=== PATIENT | male | born 1940 | race Caucasian/White ===

== ENCOUNTER 2018-08-11 17:04 | Inpatient (IN) | payer MEDICARE ==
[~2018-08-11] VITALS: Ht 182.9 cm; Wt 113.6 kg
[2018-08-11] MEDS ORDERED: COREG6.25 MG PO (17:18)
[2018-08-11] MEDS ORDERED: FLOMAX0.4 MG PO (17:18)
[2018-08-11] MEDS ORDERED: CARDIZEM CD240 MG PO (17:18)
[2018-08-11] MEDS ORDERED: OMEPRAZOLE20 M1 PO (17:19)
[2018-08-11] MEDS ORDERED: ZOLOFT50 MG PO (17:19)
[2018-08-11] MEDS ORDERED: XANAX0.5 MG PO (17:20)
[2018-08-11] MEDS ORDERED: SYNTHROID100 MCG PO (17:20)
[2018-08-11 18:02] LABS: INR 1.13 (0.85-1.17)
[2018-08-11 18:03] LABS: APTT 32.3 SECONDS (22.8-39.4)
[2018-08-11 18:08] LABS: BASOPHILS 0 % (0-2); EOSINOPHILS 0 % (0-7); HEMATOCRIT 40.1 % (42.0-54.0); HEMOGLOBIN 13.9 g/dL (13.5-17.5); IMMATURE GRANULOCYTES 0.6 % (0-5); LYMPHOCYTES 6.1 % (15-50); MCH 30.4 pg (26.0-34.0); MCHC 34.7 g/dL (31.0-37.0); MCV 87.7 fL (80.0-100.0); MEAN PLATELET VOLUME 9.8 fL (7.4-10.4); MONOCYTES 7.6 % (2-11); NEUTROPHILS 85.7 % (40-80); PLATELET COUNT 268 10x3/uL (130-400); RBC 4.57 10x6/uL (4.20-6.10); RDW 14.4 % (11.5-14.5); WBC 20.7 10x3/uL (4.8-10.8)
[2018-08-11 18:16] LABS: ALKALINE PHOSPHATASE 85 U/L (46-116); ALT (SGPT) 23 U/L (10-68); BILIRUBIN - TOTAL 0.39 mg/dL (0.2-1.3); CALC OSMOLALITY 273 mosm/kg (275-300); CALCIUM 9.2 mg/dL (8.5-10.1); CARBON DIOXIDE 26.8 mmol/L (21.0-32.0); CHLORIDE - SERUM 96 mmol/L (98-107); GLUCOSE 113 mg/dL (74-106); POTASSIUM - SERUM 3.5 mmol/L (3.5-5.1); PROTEIN - SERUM 7.1 g/dL (6.4-8.2); SODIUM 135 mmol/L (136-145); UREA NITROGEN 21 mg/dL (7-18); eGFR NON AFRICAN AMERICAN 77 mL/min (90-120)
[2018-08-11 18:33] LABS: CREATINE KINASE 397 UL (21-232); THYROID STIMULATING HORMONE 4.18 uIU/mL (0.36-3.74)
[2018-08-11 18:35] LABS: TROPONIN-I 0.158 ng/mL (0.000-0.060)
[2018-08-11 18:39] LABS: APPEARANCE CLOUDY (CLEAR); COLOR YELLOW (YELLOW); NITRITE POSITIVE (NEGATIVE); PROTEIN 3+ mg/dL (NEGATIVE); SPECIFIC GRAVITY 1.015 (1.005-1.020)
[2018-08-11 18:40] LABS: BACTERIA MANY /hpf (NONE SEEN); BILIRUBIN NEGATIVE (NEGATIVE); EPITHELIAL CELLS 0-5 /hpf (0-5); GLUCOSE NEGATIVE (NEGATIVE); KETONE MODERATE mg/dL (NEGATIVE); RED CELLS - URINE RARE /hpf (0-5); UROBILINOGEN NORMAL (NORMAL); WHITE CELLS - URINE >50 /hpf (0-5)
[2018-08-11 19:00] VITALS: BP 124/74
--- NOTE | 2018-08-11 19:16 | NUR ---
PT PROVIDED URINAL PER REQUEST. PT RESTING ON BED, FAMILY AT BEDSIDE. NO S/S OF ACUTE DISTRESS NOTED.
--- NOTE | 2018-08-11 19:45 | NUR ---
PT AND FAMILY UPDATED ON PLAN OF CARE. PT AND FAMILY DENY FURTHER QUESTIONS.
--- NOTE | 2018-08-11 20:03 | NUR ---
PT LEFT VIA STRETCHER FOR CT, PT WILL BE TAKEN TO INPATIENT ROOM FOLLOWING CT.
--- NOTE | 2018-08-11 20:15 | NUR ---
PT ARRIVED ON UNIT VIA STRETCHER ESCORTED BY ER STAFF AND FAMILY MEMBER. IV IN RIGHT WRIST SALINE LOCKED. TRANSFERRED TO BED AND PT TRYING TO CLIMB OVER RAIL AND URINATING AT THE SAME TIME. PROVIDED URINAL AND PT URINATING 50 ML AND THEN URINATED ON THE FLOOR...CONFUSED AND UNSTEADY ON HIS FEET. GOT BACK IN BED AND PT PULLED OUT IV SCOOTING UP IN BED.
--- NOTE | 2018-08-11 20:25 | NUR ---
PT CONTINUES TO CLIMB OVER SIDE RAIL AND YELLING HE NEEDS TO URINATE EVEN THOUGH HE CAN'T GO WHEN OFFERED A URINAL. CALLED DR LOVE AND NOTIFIED OF PT'S ARRIVAL ON FLOOR AND BEHAVIORS SINCE ARRIVING. RECEIVED ORDER TO GIVE GEODON 5 MG IM Q6 HR PRN AGGITATION. ALSO ORDER RECEIVED TO PLACED GRAHAM CATHETER AND DOCUMENT RETAINED URINE.
--- NOTE | 2018-08-11 21:05 | NUR ---
GAVE GEODON 5 MG IM FOR AGGITATION.
--- NOTE | 2018-08-11 22:20 | NUR ---
PT HAD INCONTINENT URINATION...THEN 18 F GRAHAM CATHETER WAS PLACED WITH RETURN OF 425 ML OF RETAINED URINE. PT LESS AGGITATED AT THIS TIME. BED ALARM IN PLACE.
--- NOTE | 2018-08-11 22:30 | NUR ---
IV RE-SITED TO RIGHT FA BY DANIELLE BOYER LPN AND ANOTHER SITED TO LEFT FA BY DESMOND WATTS LPN. STARTED IV FLUIDS TO RIGHT FA PER ORDER. PT RESTING AT THIS TIME ON RIGHT SIDE WITH EYES CLOSED AND EASY RESPIRATIONS. BED ALARM IN USE.
[2018-08-11 23:21] VITALS: BP 147/71; BMI 34.0
--- NOTE | 2018-08-11 23:56 | NUR ---
ADMISSION ASSESSMENT AND HISTORY COMPLETE.
[2018-08-12 07:01] LABS: BASOPHILS 0.1 % (0-2); EOSINOPHILS 0.1 % (0-7); HEMATOCRIT 38.2 % (42.0-54.0); IMMATURE GRANULOCYTES 0.4 % (0-5); LYMPHOCYTES 11.1 % (15-50); MCH 29.7 pg (26.0-34.0); MCV 87.4 fL (80.0-100.0); MEAN PLATELET VOLUME 9.2 fL (7.4-10.4); MONOCYTES 11.2 % (2-11); NEUTROPHILS 77.1 % (40-80); PLATELET COUNT 251 10x3/uL (130-400); RBC 4.37 10x6/uL (4.20-6.10); RDW 14.5 % (11.5-14.5); WBC 18.5 10x3/uL (4.8-10.8)
[2018-08-12 07:21] LABS: CALC OSMOLALITY 278 mosm/kg (275-300); CALCIUM 8.4 mg/dL (8.5-10.1); CARBON DIOXIDE 24.9 mmol/L (21.0-32.0); CHLORIDE - SERUM 103 mmol/L (98-107); GLUCOSE 92 mg/dL (74-106); POTASSIUM - SERUM 3.2 mmol/L (3.5-5.1); SODIUM 139 mmol/L (136-145); UREA NITROGEN 16 mg/dL (7-18)
[2018-08-12 07:23] LABS: CREATININE - SERUM 0.7 mg/dL (0.6-1.3); eGFR NON AFRICAN AMERICAN > 90 mL/min (90-120)
[2018-08-12 09:26] VITALS: BP 174/89
[2018-08-12 13:27] VITALS: BP 167/79
[2018-08-12 14:56] LABS: CKMB 9.5 U/L (0.0-3.6); THYROID STIMULATING HORMONE 3.13 uIU/mL (0.36-3.74); TROPONIN-I 0.055 ng/mL (0.000-0.060)
[2018-08-12 15:01] LABS: CREATINE KINASE 1280 UL (21-232)
--- NOTE | 2018-08-12 15:28 | MORECARE ---
CASE MANAGEMENT DISCHARGE SUMMARY PATIENT: ROLAN RODRIGUEZ UNIT: [id number] ADM DATE: 08/11/18 AGE: 77 : 39 SEX: M ROOM/BED: D.2202 AUTHOR: THOM SILVA PHYSICIAN: REFERRING PHYSICIAN: TIEN LOVE MD DATE OF SERVICE: 08/12/18 Discharge Plan Patient Name: ROLAN RODRIGUEZ [facility] [facility] 1940 Planned Disposition: Home Anticipated Discharge Date: 08/14/18 Discharge Date: Expected LOS: 3 Initial Reviewer: [email or web address] Initial Review Date: 08/11/2018 Generated: 08/12/18 4:28 pm DCPIA - Discharge Planning Initial Assessment Updated by [email or web address]: Annabelle Celestin on 08/12/18 3:25 pm * Is the patient Alert and Oriented? No * How many steps to enter\exit or inside your home? * PCP [facility]acy [facility] * Preadmission Environment Home Alone * ADLs Independent * Equipment Cane * List name and contact numbers for known caregivers / representatives who currently or will assist patient after discharge: Elise Pacheco - daughter - [phone] Richomnd Rodriguez - son - [phone] * Verbal permission to speak to the caregivers and representatives has been obtained from the patient. Yes * Community resources currently utilized None * Additional services required to return to the preadmission environment? No * Can the patient safely return to the preadmission environment? Yes * Has this patient been hospitalized within the prior 30 days at any hospital? No Patient Name: ROLAN RODRIGUEZ Page 98119 at 1528 All edits/amendments must be made on the electronic document DICTATION DATE: 08/12/18 1528 APPIAN BPM DEVELOPER: ZHOU 08/12/188 RPT#: [id number] DC DATE: STATUS: ADM IN [facility] [address] [place] [address] END OF REPORT
--- NOTE | 2018-08-12 15:37 | MORECARE ---
CASE MANAGEMENT DISCHARGE SUMMARY PATIENT: ROLAN RODRIGUEZ UNIT: [id number] ADM DATE: 08/11/18 AGE: 77 : 39 SEX: M ROOM/BED: D.2202 AUTHOR: THOM SILVA PHYSICIAN: REFERRING PHYSICIAN: TIEN LOVE MD DATE OF SERVICE: 08/12/18 Discharge Plan Patient Name: ROLAN RODRIGUEZ Facility: [facility]:[place] : 1940 Planned Disposition: Home Anticipated Discharge Date: 08/14/18 Discharge Date: Expected LOS: 3 Initial Reviewer: [email or web address] Initial Review Date: 08/11/2018 Generated: 08/12/18 4:36 pm DCP- Discharge Planning Updated by [email or web address]: Annabelle Celestin on 08/12/18 2:[address] Patient Name: ROLAN RODRIGUEZ Admission Status: ER Accout number: [id number] Admission Date: 08-11-2018 : 1940 Admission Diagnosis: Attending: TIEN LOVE Current LOS: 1 Anticipated DC Date: 08-14-2018 Planned Disposition: Home Primary Insurance: MEDICARE A & B Discharge Planning Comments: CM met with patient who was confused and his son, Richmond Rodriguez, to complete initial dc planning assessment. CM educated patient and his son on the CM role and verbal consent given by patient's son to complete assessment. Patient lives at home alone and is usually independent in his care at home. The confusion is new and the patient is normally A&O x3. At discharge patient's son hope he is able to return home alone and he feels this is a safe discharge as long as patient's orientation clears up. CM discussed availability of home health, rehab services, and medical equipment. Patient's son denied known discharge needs at this time and hope he will not need any assistance at dc. CM will continue to follow and will assist as needed with dc plans/needs. Production Grader: Annabelle Celestin RN, [facility] DCPIA - Discharge Planning Initial Assessment Updated by [id number]: Annabelle Celestin on 08/12/18 3:25 pm * Is the patient Alert and Oriented? No * How many steps to enter\exit or inside your home? * PCP [facility] * Pharmacy [facility] * Preadmission Environment Home Alone * ADLs Independent * Equipment Cane * List name and contact numbers for known caregivers / representatives who currently or will assist patient after discharge: Elise Pacheco - daughter - [phone] Richmond Rodriguez - son - [phone] * Verbal permission to speak to the caregivers and representatives has been obtained from the patient. Yes * Community resources currently utilized None * Additional services required to return to the preadmission environment? No * Can the patient safely return to the preadmission environment? Yes * Has this patient been hospitalized within the prior 30 days at any hospital? No Last DP export: 08/12/18 2:28 p Patient Name: ROLAN RODRIGUEZ Page 97705 at 1537 All edits/amendments must be made on the electronic document DICTATION DATE: 08/12/181535 ADMITTING REPRESENTATIVE: ZHOU 08/12/181535 RPT#: [id number] DC DATE: STATUS: ADM IN [facility] [address] [place] [address] END OF REPORT
[2018-08-12 18:09] VITALS: BP 174/88
--- NOTE | 2018-08-12 19:00 | NUR ---
REPORT RECEIVED AND CARE OF PT ASSUMED. PT LYING ON LEFT SIDE WITH EYES CLOSED AND UNLABORED BREATHING. TELEMETRY REPORTS SR AT 90 AT THIS ASSESSMENT. IV PATENT WITH NS INFUSING AT 125 ML / HR. WILL MONITOR FOR NEEDS.
--- NOTE | 2018-08-12 19:50 | NUR ---
I have reviewed this patient and I concur with the Shift Assessment completed by the Licensed Practical Nurse today this shift.
[2018-08-12 21:04] LABS: CKMB 6.7 U/L (0.0-3.6); TROPONIN-I 0.044 ng/mL (0.000-0.060)
[2018-08-12 21:05] VITALS: BP 170/80
[2018-08-12 21:07] LABS: CREATINE KINASE 1104 UL (21-232)
--- NOTE | 2018-08-12 21:19 | NUR ---
HS MEDICATIONS GIVEN TO INCLUDE XANAX 0.5 MG PO PER ORDER. WILL CONTINUE TO MONITOR FOR NEEDS.
[2018-08-13 02:58] LABS: BASOPHILS 0.1 % (0-2); EOSINOPHILS 0.4 % (0-7); HEMATOCRIT 36.3 % (42.0-54.0); HEMOGLOBIN 12.3 g/dL (13.5-17.5); IMMATURE GRANULOCYTES 0.8 % (0-5); LYMPHOCYTES 12.5 % (15-50); MCH 29.6 pg (26.0-34.0); MCHC 33.9 g/dL (31.0-37.0); MCV 87.5 fL (80.0-100.0); MEAN PLATELET VOLUME 9.4 fL (7.4-10.4); MONOCYTES 8.1 % (2-11); NEUTROPHILS 78.1 % (40-80); PLATELET COUNT 257 10x3/uL (130-400); RBC 4.15 10x6/uL (4.20-6.10); RDW 14.4 % (11.5-14.5)
[2018-08-13 03:18] LABS: CALC OSMOLALITY 273 mosm/kg (275-300); CARBON DIOXIDE 25.1 mmol/L (21.0-32.0); CHLORIDE - SERUM 103 mmol/L (98-107); CKMB 3.8 U/L (0.0-3.6); CREATINE KINASE 729 UL (21-232); CREATININE - SERUM 0.6 mg/dL (0.6-1.3); GLUCOSE 85 mg/dL (74-106); POTASSIUM - SERUM 3.2 mmol/L (3.5-5.1); SODIUM 138 mmol/L (136-145); TROPONIN-I 0.038 ng/mL (0.000-0.060); UREA NITROGEN 11 mg/dL (7-18); eGFR NON AFRICAN AMERICAN > 90 mL/min (90-120)
[2018-08-13 05:49] VITALS: BP 122/77
--- NOTE | 2018-08-13 07:35 | NUR ---
PT RESTING QUIETLY IN BED WITH EYES OPEN. NO ACUTE DISTRESS NOTED. PT IS [place]. DENIES PAIN AT THIS TIME. IV TO RIGHT FOREARM WITH NS @ 125 ML/HR INFUSING VIA PUMP. SITE WITHOUT REDNESS OR EDEMA. SALINE LOC TO LEFT FOREARM, SITE WITHOUT REDNESS OR EDEMA. F/C INTACT AND PATENT TO GRAVITY. DENIES FURTHER NEEDS AT THIS TIME. CL WITHIN REACH. ENCOURAGED TO CALL WITH NEEDS. CONTINUE POC
[2018-08-13 08:31] VITALS: BP 133/54
--- NOTE | 2018-08-13 11:43 | NUR ---
Rehab Prescreening Consult recieved and the chart has been reviewed. He has a consult for Dr Thomas that is pending and a PT and OT eval that are pending as well. Rehab will follow and see what his functional and medical needs are. Discussed with the CM Dali Cordero RN. Olivia Casillas RN Clinical Liaison, Rehab
[2018-08-13 13:25] VITALS: BP 123/58
[2018-08-13 17:06] VITALS: BP 111/46
[2018-08-13 20:35] VITALS: BP 120/57
[2018-08-13 23:47] VITALS: BP 140/73
--- NOTE | 2018-08-14 03:02 | NUR ---
1944)rec'd chge. of shift in bed eyes closed resp. deep and even.rhett alarm in place. will continue to monitor for any chges. and follow current plan of care.
[2018-08-14 04:00] VITALS: BP 123/42
[2018-08-14 05:28] LABS: BASOPHILS 0.2 % (0-2); EOSINOPHILS 1.2 % (0-7); HEMATOCRIT 37.2 % (42.0-54.0); HEMOGLOBIN 12.4 g/dL (13.5-17.5); IMMATURE GRANULOCYTES 3.5 % (0-5); LYMPHOCYTES 18.9 % (15-50); MCH 29.1 pg (26.0-34.0); MCHC 33.3 g/dL (31.0-37.0); MCV 87.3 fL (80.0-100.0); MEAN PLATELET VOLUME 9.8 fL (7.4-10.4); MONOCYTES 8.2 % (2-11); RBC 4.26 10x6/uL (4.20-6.10); RDW 14.3 % (11.5-14.5)
[2018-08-14 05:41] LABS: PLATELET COUNT 310 10x3/uL (130-400); WBC 10.8 10x3/uL (4.8-10.8)
[2018-08-14 06:06] LABS: CALC OSMOLALITY 272 mosm/kg (275-300); CALCIUM 8.4 mg/dL (8.5-10.1); CARBON DIOXIDE 25.7 mmol/L (21.0-32.0); CHLORIDE - SERUM 104 mmol/L (98-107); CREATININE - SERUM 0.6 mg/dL (0.6-1.3); GLUCOSE 83 mg/dL (74-106); MAGNESIUM - SERUM 2.1 mg/dL (1.8-2.4); POTASSIUM - SERUM 3.2 mmol/L (3.5-5.1); SODIUM 137 mmol/L (136-145); UREA NITROGEN 12 mg/dL (7-18); eGFR NON AFRICAN AMERICAN > 90 mL/min (90-120)
--- NOTE | 2018-08-14 07:11 | NUR ---
I have reviewed this patient and I concur with the Shift Assessment completed by the Licensed Practical Nurse today this shift.
--- NOTE | 2018-08-14 07:57 | NUR ---
AWAKE AND ALERT. ORIENTED X3. C/O PAIN TO HEAD RIGHT SHOULDER AND HIP LEVEL 6. GIVEN 650 MG TYLENOL PO FOR SAME. WILL MONITOR. LUNGS ARE CLEAR BUT DIMINISHED IN LOWER LOBES, NO COUGH NOTED. SKIN IS INTACT WITHOUT REDNESS. IV TO LEFT FOREARM IS PATENT WITHOUT REDNESS AT INSERTION SITE. NO FURTHER NEEDS NOTED.
[2018-08-14 09:14] VITALS: BP 138/55
--- NOTE | 2018-08-14 10:30 | NUR ---
UP TO SHOWER WITH SET UP ASSISTANCE. LINENS CHANGED.
--- NOTE | 2018-08-14 12:30 | NUR ---
REMAINS UP IN CHAIR AT BEDSIDE EATING LUNCH. DENIES NEEDS.
[2018-08-14 13:45] VITALS: BP 130/62
--- NOTE | 2018-08-14 14:15 | NUR ---
ASSISTED BACK TO BED WITH ONE PERSON MIN ASSIST. PEYTON MAT IN PLACE. DENIES NEEDS.
--- NOTE | 2018-08-14 14:59 | NUR ---
REQUESTED AND GIVEN 650 MG TYLENOL PO FOR C/O KIDNEY PAIN LEVEL 3. WILL MONITOR.
[2018-08-14 15:18] VITALS: Ht 182.9 cm; Wt 113.6 kg
[2018-08-14 16:55] VITALS: BP 130/68
--- NOTE | 2018-08-14 18:51 | NUR ---
SITTING UP IN CHAIR AT BEDSIDE. FAMILY WAS HERE EARLIER. DENIES NEEDS. NO CHANGES NOTED.
--- NOTE | 2018-08-14 19:56 | NUR ---
OT NOTE: PT COMPLETED SITTINB BALANCE WITH SBA/CGA. PT COMPLETED SIT TO STAND WITH MIN A/CGA. THANK YOU, EDITA GABRIEL
[2018-08-14 20:00] VITALS: BP 138/74
[2018-08-15] VITALS (7 sets, daily range): BP systolic 135–170; BP diastolic 60–110
--- NOTE | 2018-08-15 00:02 | NUR ---
REC'D. SITTING IN BEDSIDE CHAIR WITH PEYTON MAT ON DENIES ANY DISCOMFORTS STATES READY TO GO HOME. WILL CONTINUE TO MONITOR FOR ANY CHGES AND CONTINUE TO FOLLOW CURRENT PLAN OF CARE
[2018-08-15 06:03] LABS: CALC OSMOLALITY 276 mosm/kg (275-300); CALCIUM 8.6 mg/dL (8.5-10.1); CARBON DIOXIDE 26.4 mmol/L (21.0-32.0); CHLORIDE - SERUM 102 mmol/L (98-107); CREATININE - SERUM 0.7 mg/dL (0.6-1.3); GLUCOSE 93 mg/dL (74-106); MAGNESIUM - SERUM 2.1 mg/dL (1.8-2.4); POTASSIUM - SERUM 3.1 mmol/L (3.5-5.1); SODIUM 139 mmol/L (136-145); UREA NITROGEN 11 mg/dL (7-18); eGFR NON AFRICAN AMERICAN > 90 mL/min (90-120)
[2018-08-15 06:06] LABS: BASOPHILS 0.5 % (0-2); EOSINOPHILS 2.6 % (0-7); HEMATOCRIT 40.8 % (42.0-54.0); HEMOGLOBIN 13.6 g/dL (13.5-17.5); IMMATURE GRANULOCYTES 7.3 % (0-5); LYMPHOCYTES 23.5 % (15-50); MCH 29.2 pg (26.0-34.0); MCHC 33.3 g/dL (31.0-37.0); MCV 87.6 fL (80.0-100.0); MEAN PLATELET VOLUME 10.1 fL (7.4-10.4); MONOCYTES 11.2 % (2-11); NEUTROPHILS 54.9 % (40-80); RBC 4.66 10x6/uL (4.20-6.10); RDW 14.3 % (11.5-14.5); WBC 9.5 10x3/uL (4.8-10.8)
[2018-08-15 06:26] LABS: PLATELET COUNT 392 10x3/uL (130-400)
--- NOTE | 2018-08-15 06:44 | NUR ---
I have reviewed this patient and I concur with the Shift Assessment completed by the Licensed Practical Nurse today this shift.
--- NOTE | 2018-08-15 07:34 | NUR ---
IV SITED TO LEFT UPPER ARM AFTER 3 ATTEMPTS WITH 20 G. OFF UNIT VIA BED FOR SURGERY
--- NOTE | 2018-08-15 09:20 | NUR ---
RETURNED FROM SURGERY. A/O X3. NO C/O PAIN. DENIES NEEDS. SON AT BEDSIDE.
--- NOTE | 2018-08-15 10:00 | NUR ---
SON IN ROOM AT THIS TIME. VSS. ASSISTED UP TO CHAIR AT BEDSDIE PER STAFF. PULLED IV OUT AT THIS TIME. WILL MONITOR.
--- NOTE | 2018-08-15 10:18 | OP ---
PATIENT NAME: ROLAN DAIGLE MEDICAL RECORD: [id number] :38 LOCATION:D.MS Ann2 ADMISSION DATE:08/11/18 SURGEON: JOSH TREVINO MD DATE OF OPERATION: 08/15/2018 SURGEON: Josh Trevino MD ANESTHESIA: General anesthesia by Hemanth Gil MD. DIAGNOSES: A 6-mm left distal ureteral stone with hydronephrosis proximally, and left pyelonephritis. Obstructive BPH with incomplete bladder emptying. PROCEDURES: Cystoscopy, left retrograde pyelogram, left ureteroscopy and stone extraction, left ureteral stent insertion with string attached. 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 Trabeculated bladder with cellules. Single ureteral orifices bilaterally. SPECIMENS: Left ureteral stone. BLOOD LOSS: None. CLINICAL HISTORY: This is a 77-year-old male, who comes from a senior living. He is very hard of hearing and he did not bring his hearing aids, so the history was very difficult to obtain. He was sent with apparent pyelonephritis with elevated white blood cell count, rigors and chills. Urine culture grew Enterobacter cloacae. Blood cultures have been negative. He was placed on IV antibiotics and his white count has come down and he has been afebrile. A CT scan shows a 6-mm stone in the left distal ureter causing proximal hydroureteronephrosis. There is also an enlarged prostate seen on the CT scan. The BPH is the most likely cause of his pyelonephritis as men do not get urinary tract infections unless they have bladder outlet obstruction. He comes today to have the stone removed by left ureteroscopy. At a later date when his infection is fully cleared, we will treat his BPH with the UroLift procedure. Since he is already on IV antibiotics on the floor, we did not give him any further IV antibiotics in the OR. DESCRIPTION OF PROCEDURE: The patient was given induction of general anesthesia. He was placed into dorsal lithotomy position and prepped and draped. Fluoroscopy revealed 2 radiodensities in the left hemipelvis. In order to determine which one of these was the stone, we performed a left retrograde pyelogram. Cystoscopy was performed using a 21-Congolese cystoscope. There was no urethral stricture. The prostate was obstructive with bilateral lateral lobe hyperplasia. There is no median lobe to speak of. We then introduced a 5-Congolese open-ended ureteral catheter into the left ureteral orifice. Diluted contrast was injected and we found the correct stone in the distal ureter. A Sensor wire was placed up to the renal pelvis through the lumen of the ureteral catheter. The ureteral catheter was then removed entirely. The left ureteral orifice was dilated to 21-Congolese using 14 atmospheres of pressure with the balloon tip just at the level of the stone on fluoroscopy. The pressure was maintained for only a few seconds and then the balloon was deflated. We then switched to the rigid ureteroscope. The stone was identified in the ureter. A 0-tip 4-wire basket was used to completely remove the stone. There were actually 2 stone fragments, much larger and a very tiny 1 mm stone. We went OPERATIVE REPORT [id number] ROLAN DAIGLE back and got the 1-mm stone fragment also. No other stones were seen. We then switched back to the cystoscope. The guidewire was backloaded on to the cystoscope. Over the wire, we inserted a 6-Congolese x 24-cm ureteral stent. Once the stent was in correct position, we drained the bladder and pushed the distal end of the stent all the way into the bladder. The string on the distal end of the stent was maintained. It hangs out of the urethra. His indwelling catheter was placed back in. A new 16-Congolese was inserted for this. The patient was awakened and brought back to the recovery room. He will go back to his room soon. TRANSINT:[id number] Voice Confirmation ID: [id number] DOCUMENT ID: [id number] JOSH TREVINO MD at 1018 CC: [id number] DICTATION DATE: 08/15/18 0843 ENGINEERING LIBRARIAN: 08/15/[address] [facility] [address] [place] [address]
[2018-08-15] MEDS ORDERED: ACETAMINOPHEN325 MG PO (11:53)
[2018-08-15] MEDS ORDERED: LOVENOX40 MG/0.4 SC (11:53)
[2018-08-15] MEDS ORDERED: XANAX0.25 MG PO (11:53)
[2018-08-15] MEDS ORDERED: FLORAJEN3 CAPS460 MG PO (11:54)
[2018-08-15] MEDS ORDERED: HYDROCODON-ACE1 EAC7 PO (11:55)
[2018-08-15] MEDS ORDERED: BACTRIM 400-801 TAB PO (11:55)
--- NOTE | 2018-08-15 12:11 | MORECARE ---
CASE MANAGEMENT DISCHARGE SUMMARY PATIENT: ROLAN RODRIGUEZ UNIT: [id number] ADM DATE: 08/11/18 AGE: 77 : 39 SEX: M ROOM/BED: D.2202 AUTHOR: THOM SILVA PHYSICIAN: REFERRING PHYSICIAN: TIEN LOVE MD DATE OF SERVICE: 08/15/18 Discharge Plan Patient Name: ROLAN RODRIGUEZ Facility: [facility]:[place] : 1940 Planned Disposition: Home Anticipated Discharge Date: 08/14/18 Discharge Date: Expected LOS: 3 Initial Reviewer: [email or web address] Initial Review Date: 08/11/2018 Generated: 08/15/18 1:11 pm Comments DCP- Discharge Planning Updated by [email or web address]: Bianca Cordero on 08/15/18 11:[address] imm served, patient to go to inpatient rehab at [facility] today. son at bedside patient asked if his son could sign the paper. cm will continue to follow and assist with dc planning DCP- Discharge Planning Updated by [id number]: Annabelle Celestin on 08/12/18 2:[address] Patient Name: ROLAN RODRIGUEZ Admission Status: ER Accout number: [id number] Admission Date: 08-11-2018 : 1940 Admission Diagnosis: Attending: TIEN LOVE Current LOS: 1 Anticipated DC Date: 08-14-2018 Planned Disposition: Home Primary Insurance: MEDICARE A & B Discharge Planning Comments: CM met with patient who was confused and his son, Bronwyn Rodriguez, to complete initial dc planning assessment. CM educated patient and his son on the CM role and verbal consent given by patient's son to complete assessment. Patient lives at home alone and is usually independent in his care at home. The confusion is new and the patient is normally A&O x3. At discharge patient's son hope he is able to return home alone and he feels this is a safe discharge as long as patient's orientation clears up. CM discussed availability of home health, rehab services, and medical equipment. Patient's son denied known discharge needs at this time and hope he will not need any assistance at dc. CM will continue to follow and will assist as needed with dc plans/needs. Printing Plate Setter: Annabelle Celestin RN, [facility] DCPIA - Discharge Planning Initial Assessment Updated by [email or web address]: Annabelle Celestin on 08/12/18 3:25 pm * Is the patient Alert and Oriented? No * How many steps to enter\exit or inside your home? * PCP [facility] * Pharmacy [facility] * Preadmission Environment Home Alone * ADLs Independent * Equipment Cane * List name and contact numbers for known caregivers / representatives who currently or will assist patient after discharge: Elise Pacheco - daughter - [phone] Bronwyn Rodriguez - son - [phone] * Verbal permission to speak to the caregivers and representatives has been obtained from the patient. Yes * Community resources currently utilized None * Additional services required to return to the preadmission environment? No * Can the patient safely return to the preadmission environment? Yes * Has this patient been hospitalized within the prior 30 days at any hospital? No Coverage Notice Reviewer: [email or web address] Ashia Cordero Notice Issued Date-Time: 08/15/2018 11:45 Notice Type: IM Discharge Notice Notice Delivered To: Family Member Relationship to Patient: Son Real Estate Rental Agent Name: bronwyn Delivery Method: HAND - Hand Delivered Ashanti Days: Prior Verbal Notification: Recipient Understood Notice: Yes Recipient Signature: Yes Med Rec Note Co-signed by Attending: Coverage Notice Comment: Last DP export: 08/12/18 2:36 p Patient Name: ROLAN RODRIGUEZ Page [id number] at 1211 All edits/amendments must be made on the electronic document DICTATION DATE: 08/15/18 121 CANDY DECORATOR: ZHOU 08/15/18 1211 RPT#: [id number] DC DATE: STATUS: ADM IN [facility] [address] [place] [address] END OF REPORT
--- NOTE | 2018-08-15 15:30 | NUR ---
REPORT CALLED TO MARCIE STEVENS ON REHAB. ALL QUESTIONS ANSWERED. DISCHARGE INSTRUCTIONS GIVEN TO PATIENT. ALL QUESTIONS ANSWERED. PATIENT VERBALIZED UNDERSTANDING OF SAME. NO NEW PRE SCRIPTIONS GIVEN. TRANSFERRED TO REHAB VIA WC. ALL BELONGINGS WITH PATIENT.
--- NOTE | 2018-08-15 18:53 | NUR ---
OT NOTE: PT COMPLETED DYNAMIC SITTING BALANCE WITH SBA/CGA. PT COMPLETED SIT TO STAND WITH CGA/MIN A. PT COMPLETED FACE WASH AND HAIR GROOMING WITH SET UP. PT WAS UPSET DUE TO MONITOR ON R INDEX FINGER . KOHLER EXPLAINED THAT IT WAS TO MONITOR O2 STATS. PT USED L HAND FOR ADLS. THANK YOU, EDITA GABRIEL
--- NOTE | 2018-08-16 16:49 | MORECARE ---
CASE MANAGEMENT DISCHARGE SUMMARY PATIENT: ROLAN RODRIGUEZ UNIT: [id number] ADM DATE: 08/11/18 AGE: 77 : 39 SEX: M ROOM/BED: D.2202 AUTHOR: THOM SILVA PHYSICIAN: REFERRING PHYSICIAN: TIEN LOVE MD DATE OF SERVICE: 08/16/18 Discharge Plan Patient Name: ROLAN RODRIGUEZ Facility[facility]:[place] : 1940 Planned Disposition: Home Anticipated Discharge Date: 08/14/18 Discharge Date: 08/15/2018 Expected LOS: 3 Initial Reviewer: [email or web address] Initial Review Date: 08/11/2018 Generated: 08/16/18 5:49 pm Comments DCP- Discharge Planning Updated by [email or web address]: Bianca Cordero on 08/15/18 11:[address] imm served, patient to go to inpatient rehab at [facility] today. son at bedside patient asked if his son could sign the paper. cm will continue to follow and assist with dc planning DCP- Discharge Planning Updated by [email or web address]: Annabelle Celestin on 08/12/18 2:[address] Patient Name: ROLAN RODRIGUEZ Admission Status: ER Accout number: [id number] Admission Date: 08-11-2018 : 1940 Admission Diagnosis: Attending: TIEN LOVE Current LOS: 1 Anticipated DC Date: 08-14-2018 Planned Disposition: Home Primary Insurance: MEDICARE A & B Discharge Planning Comments: CM met with patient who was confused and his son, Bronwyn Rodriguez, to complete initial dc planning assessment. CM educated patient and his son on the CM role and verbal consent given by patient's son to complete assessment. Patient lives at home alone and is usually independent in his care at home. The confusion is new and the patient is normally A&O x3. At discharge patient's son hope he is able to return home alone and he feels this is a safe discharge as long as patient's orientation clears up. CM discussed availability of home health, rehab services, and medical equipment. Patient's son denied known discharge needs at this time and hope he will not need any assistance at dc. CM will continue to follow and will assist as needed with dc plans/needs. Inside Sales Person: Annabelle Celestin RN, [facility] DCPIA - Discharge Planning Initial Assessment Updated by [email or web address]: Annabelle Celestin on 08/12/18 3:25 pm * Is the patient Alert and Oriented? No * How many steps to enter\exit or inside your home? * PCP [facility] * Pharmacy [facility] * Preadmission Environment Home Alone * ADLs Independent * Equipment Cane * List name and contact numbers for known caregivers / representatives who currently or will assist patient after discharge: Elise Pacheco - daughter - [phone] Bronwyn Rodriguez - son - [phone] * Verbal permission to speak to the caregivers and representatives has been obtained from the patient. Yes * Community resources currently utilized None * Additional services required to return to the preadmission environment? No * Can the patient safely return to the preadmission environment? Yes * Has this patient been hospitalized within the prior 30 days at any hospital? No Coverage Notice Reviewer: [id number] sAhia Cordero Notice Issued Date-Time: 08/15/2018 11:45 Notice Type: IM Discharge Notice Notice Delivered To: Family Member Relationship to Patient: Son Mobile Equipment Servicer Name: bronwyn Delivery Method: HAND - Hand Delivered Ashanti Days: Prior Verbal Notification: Recipient Understood Notice: Yes Recipient Signature: Yes Med Rec Note Co-signed by Attending: Coverage Notice Comment: Last DP export: 08/15/18 11:11 am Patient Name: ROLAN RODRIGUEZ Page 14816 at 1649 All edits/amendments must be made on the electronic document DICTATION DATE: 08/16/181648 DATABASE DEVELOPER: ZHOU 08/16/181648 RPT#: [id number] DC DATE:08/15/18 STATUS: DIS IN [facility] [address] [place] [address] END OF REPORT
== END 2018-08-15 16:38 | DRG 872 ==
LOC: D.ER 17:04 → D.EDHOLD 18:58 → D.MS 18:58
PROVIDERS: Family Medicine; ADMIT Internal Medicine Nephrology; ATTEND Internal Medicine Nephrology
DX: A41.9 Sepsis, unspecified organism (principal); N10 Acute pyelonephritis; N17.9 Acute kidney failure, unspecified; I48.91 Unspecified atrial fibrillation

== ENCOUNTER 2018-08-15 17:11 | Inpatient (IN) | payer MEDICARE ==
[~2018-08-15] VITALS: Ht 182.9 cm; Wt 113.4 kg
--- NOTE | 2018-08-15 16:40 | NUR ---
PT ARRIVED TO UNIT VIA WHEELCHAIR ACCOMPANIED BY HOSPITAL STAFF. PT IS ALERT BUT CONFUSED. PT CURRENTLY IN ROOM TALKING TO HIMSELF. PT GRAHAM DRAINING KARINA URINE. PT DENIES NEEDS.
[~2018-08-15 17:11] MED LIST: ACETAMINOPHEN325 MG PO; BACTRIM 400-801 TAB PO; CARDIZEM CD240 MG PO; COREG6.25 MG PO; FLOMAX0.4 MG PO; FLORAJEN3 CAPS460 MG PO; HYDROCODON-ACE1 EAC7 PO; LOVENOX40 MG/0.4 SC; OMEPRAZOLE20 M1 PO; SYNTHROID100 MCG PO; XANAX0.25 MG PO; XANAX0.5 MG PO; ZOLOFT50 MG PO
[2018-08-15 18:18] VITALS: BP 134/60
--- NOTE | 2018-08-15 19:12 | NUR ---
GREETED PATIENT AND INTRODUCED MYSELF. PATIENT IS VERY CONFUSED OF HIS SURROUNDINGS. HAD PATIENT TO LAY DOWN IN BED TO KEEP FROM FALLING. BED ALARM ON WORKING PROPERLY. CALL LIGHT IN REACH.
[2018-08-15 20:38] VITALS: BP 134/60
--- NOTE | 2018-08-16 00:30 | NUR ---
PATIENT RESTING QUIETLY LAYING ON RIGHT SIDE. HOB AT 15 DEGREES. RESPIRATIONS EVEN. NO S/S OF DISTRESS. SR UP X 2. BED IN LOWEST POSITION. CALL LIGHT IN REACH.
[2018-08-16 01:36] LABS: APPEARANCE HAZY (CLEAR); BILIRUBIN NEGATIVE (NEGATIVE); COLOR YELLOW (YELLOW); GLUCOSE NEGATIVE (NEGATIVE); KETONE NEGATIVE (NEGATIVE); NITRITE NEGATIVE (NEGATIVE); PROTEIN 1+ mg/dL (NEGATIVE); RED CELLS - URINE >50 /hpf (0-5); UROBILINOGEN NORMAL (NORMAL); WHITE CELLS - URINE 0-5 /hpf (0-5)
[2018-08-16 06:39] LABS: BASOPHILS 0.6 % (0-2); CALC OSMOLALITY 279 mosm/kg (275-300); CALCIUM 8.5 mg/dL (8.5-10.1); CARBON DIOXIDE 26.8 mmol/L (21.0-32.0); CHLORIDE - SERUM 104 mmol/L (98-107); CREATININE - SERUM 0.8 mg/dL (0.6-1.3); EOSINOPHILS 3.9 % (0-7); GLUCOSE 120 mg/dL (74-106); HEMATOCRIT 37.4 % (42.0-54.0); HEMOGLOBIN 12.9 g/dL (13.5-17.5); IMMATURE GRANULOCYTES 6.7 % (0-5); LYMPHOCYTES 20.6 % (15-50); MCH 29.9 pg (26.0-34.0); MCHC 34.5 g/dL (31.0-37.0); MCV 86.8 fL (80.0-100.0); MEAN PLATELET VOLUME 9.1 fL (7.4-10.4); MONOCYTES 12.5 % (2-11); NEUTROPHILS 55.7 % (40-80); PLATELET COUNT 384 10x3/uL (130-400); POTASSIUM - SERUM 3.6 mmol/L (3.5-5.1); RBC 4.31 10x6/uL (4.20-6.10); RDW 14.2 % (11.5-14.5); SODIUM 140 mmol/L (136-145); UREA NITROGEN 12 mg/dL (7-18); WBC 10.8 10x3/uL (4.8-10.8); eGFR NON AFRICAN AMERICAN > 90 mL/min (90-120)
--- NOTE | 2018-08-16 08:15 | NUR ---
PT RESTING IN BED WITH EYES OPEN CALL LIGHT IN REACH NO PROBLEMS WILL MONITER
--- NOTE | 2018-08-16 10:28 | NUR ---
PATIENT ADMITTED TO REHAB FROM ACUTE FLOOR. PATIENT HAS NO OUTSIDE SERVICES AND DME AT HOME IS A CANE. [place]. WILL CONTINUE TO FOLLOW WITH PATIENT AND ASSIT WITH DISCHARGE NEEDS.
[2018-08-16 13:35] VITALS: Ht 182.9 cm; Wt 113.4 kg
--- NOTE | 2018-08-16 18:24 | NUR ---
PT RESTING IN BED WITH EYES OPEN CALL LIGHT IN REACH WILL MONITER
--- NOTE | 2018-08-16 20:00 | NUR ---
PT SITTING ON THE SIDE OF HIS BED. ALERT AND ORIENTED X 3. VOICED COMPLAINT OF A MILD HEADACHE. STATES: " I WILL NEED SOMETHING FOR IT WHEN YOU GIVE ME MY ALPRAZOLAM. PT IS [place], BUT IS ABLE TO COMMUNICATE WELL. GRAHAM CATH IS PATENT AND DRAINING TO A GRAVITY BAG. SR'S ARE UP X 2 IN BED. CALL LIGHT AND BEDSIDE TABLE ARE WITHIN EASY REACH.
--- NOTE | 2018-08-16 22:25 | NUR ---
PT IS RESTING QUIETLY IN BED WITH EYES CLOSED. RESPS ARE EVEN AND UNLABORED. NO ACUTE DISTRESS NOTED.
--- NOTE | 2018-08-17 02:36 | NUR ---
RESTING IN BED WITH RESPIRATIONS UNLABORED. SLEEPS IN SHORT INTERVALS. NO ACUTE DISTRESS NOTED. CALL LIGHT IN REACH.
--- NOTE | 2018-08-17 04:58 | NUR ---
PT RESTING IN BED DRINKING A CUP OF COFFEE. NO ACUTE DISTRESS NOTED.
[2018-08-17 08:00] VITALS: BP 119/68
--- NOTE | 2018-08-17 09:00 | NUR ---
PT AM MEDS ADMINISTERED. PT DENIES NEEDS. WCTM.
--- NOTE | 2018-08-17 10:43 | NUR ---
PT REAyan AND SARA'Binu SAWANT. PT CURRENTLY WORKING WITH THERAPY. WILBUR.
--- NOTE | 2018-08-17 16:05 | NUR ---
PT REQ AND REC'D PRN TYLENOL FOR HEADACHE AT THIS TIME. WCTM.
--- NOTE | 2018-08-17 17:59 | NUR ---
PT EATING DINNER, MAYANK NEEDS. WCTM.
--- NOTE | 2018-08-17 19:15 | NUR ---
PT RESTING IN BED WITH EYES OPEN. ALERT AND ORIENTED X 3. VSS. PT IS VERY [place]. GRAHAM CATH PATENT AND DRAINING [place] COLORED URINE TO A GRAVITY BAG. PT USES CALL LIGHT EVERY FEW MINUTES FOR VARIOUS REQUESTS. HIS BROTHER IS VISITING AT THIS TIME. SR'S ARE UP X 2 IN BED. CALL LIGHT AND BEDSIDE TABLE ARE WITHIN EASY REACH.
[2018-08-17 19:31] VITALS: BP 129/68
--- NOTE | 2018-08-17 19:34 | NUR ---
PATIENT IS SITTING UP ON SIDE OF BED AND VISITING WITH HIS SON. HIS BED IS DOWN LOW WITH SIDE RIALS UP X2. CALL LIGHT IS IN REACH.
--- NOTE | 2018-08-17 21:23 | NUR ---
PT RESTING QUIETLY IN BED WITH EYES CLOSED. RESPS. ARE EVEN AND UNLABORED. NO ACUTE DISTRESS NOTED.
--- NOTE | 2018-08-18 00:01 | NUR ---
PT RESTING IN BED WITH EYES CLOSED.
--- NOTE | 2018-08-18 02:52 | NUR ---
RESTING IN BED WITH EYES CLOSED.
--- NOTE | 2018-08-18 05:53 | NUR ---
PT ASSISTED UP TO THE BATHROOM. NO BM NOTED. PT OPTED TO STAY SITTING IN HIS WC. HE STATED: "MY THERAPY SAMUEL CAME IN AND TOLD ME TO GET READY. BED LINENS CHANGED.
--- NOTE | 2018-08-18 09:10 | NUR ---
PT AM MEDS ADMINISTERED. PT MAYANK MILLER. WILBUR.
--- NOTE | 2018-08-18 17:15 | NUR ---
PT EATING DINNER, DENIES NEEDS. WCTM.
--- NOTE | 2018-08-18 19:00 | NUR ---
PATIENT HAS GOT VISITORS AT BEDSIDE. THEY DENY ANY NEEDS AT THIS TIME. HIS BED IS DOWN LOW WITH SIDE RAILS UP X2 AND CALL LIGHT IS IN REACH.
--- NOTE | 2018-08-18 22:20 | NUR ---
RESTING IN BED WITH EYES CLOSED.
--- NOTE | 2018-08-19 02:02 | NUR ---
PT RESTING IN BED. ASSISTED TO THE BATHROOM. MEDIUM LOOSE BM NOTED.
--- NOTE | 2018-08-19 06:06 | NUR ---
PT IS SITTING ON THE SIDE OF HIS BED ANXIOUSLY AWAITING BREAKFAST. ASSISTED TO THE BATHROOM WITH CGA. LARGE LOOSE BM NOTED.
--- NOTE | 2018-08-19 08:00 | NUR ---
UP OOB TO BATHROOM AND BACK TO CHAIR.CL IN REACH.
[2018-08-19 08:03] VITALS: BP 105/57
--- NOTE | 2018-08-19 09:33 | NUR ---
PATIENT IS ALERT/ORIENT. VERY HARD OF HEARING. SITTING UP IN A WHEELCHAIR AND WATCHING T.V. VOICES NO NEEDS AT THIS TIME. CALL LIGHT WITHIN REACH. WILL CONTINUE WITH PLAN OF CARE
--- NOTE | 2018-08-19 14:30 | NUR ---
PRN TYLENOL GIVEN FOR GENERAL DISCOMFORT. SCHEDULE XANAX GIVEN FOR ANXIEITY
--- NOTE | 2018-08-19 16:05 | NUR ---
PATIENT USING CALL LIGHT FOR NEEDS. HELPED TO BATHROOM WITH ASST OF ONE AND WHEELED WALKER. PATIENT HAS A GRAHAM CATH THAT THE NURSE HAS TO EMPTY. PATIENT IS CONT OF BOWEL
--- NOTE | 2018-08-19 16:32 | NUR ---
PRN ZOFRAN GIVEN FOR NAUSEA
--- NOTE | 2018-08-19 18:12 | NUR ---
DR Luli LUO INTO SEE PATIENT. NEW ORDERS RECEIVED
--- NOTE | 2018-08-19 20:00 | NUR ---
PATIENT RECEIVED SITTING UP IN WHEELCHAIR. VITAL SIGNS & ASSESMENT DONE. NO C/O PAIN OR DISTRESS. BEDSIDE TABLE & CALL LIGHT WITHIN REACH. WHEELCHAIR ALARM ON. WILL CONTINUE TO MONITOR.
[2018-08-19 20:01] VITALS: BP 94/58
--- NOTE | 2018-08-20 02:09 | NUR ---
RESTING IN BED WITH RESPIRATIONS UNLABORED. UP AND DOWN THROUGH OUT THE SHIFT. SLEEPS IN SHORT INTERVALS. NO DISTRESS NOTED. CALL LIGHT IN REACH.
--- NOTE | 2018-08-20 03:51 | NUR ---
PATIENT EYES CLOSED. RESPIRATIONS 18 & EVEN. CALL LIGHT WITHIN REACH. ALARM ON. WILL CONTINUE TO MONITOR.
--- NOTE | 2018-08-20 05:19 | NUR ---
PATIENT ASKED FOR TYLENOL FOR LEFT CHEST PAIN. LEVEL 7. PATIENT VITAL SIGNS TAKEN. TYLENOL GIVEN PER ORDER. PATIENT STATED "mY CHEST PAIN IS BETTER, I THINK IT WAS SLEEPING ON MY LEFT SIDE. CALL LIGHT WITHIN REACH. ALARM ON. WILL CONTINUE TO MONITOR.
[2018-08-20 05:22] VITALS: BP 114/55
[2018-08-20 07:06] LABS: BASOPHILS 0.2 % (0-2); EOSINOPHILS 3.2 % (0-7); HEMATOCRIT 40.7 % (42.0-54.0); HEMOGLOBIN 13.4 g/dL (13.5-17.5); IMMATURE GRANULOCYTES 2.3 % (0-5); MCH 29.3 pg (26.0-34.0); MCHC 32.9 g/dL (31.0-37.0); MCV 89.1 fL (80.0-100.0); MEAN PLATELET VOLUME 8.8 fL (7.4-10.4); NEUTROPHILS 65.3 % (40-80); PLATELET COUNT 409 10x3/uL (130-400); RBC 4.57 10x6/uL (4.20-6.10); RDW 14.9 % (11.5-14.5); WBC 9.5 10x3/uL (4.8-10.8)
[2018-08-20 07:25] LABS: CALC OSMOLALITY 277 mosm/kg (275-300); CALCIUM 8.7 mg/dL (8.5-10.1); CARBON DIOXIDE 28.9 mmol/L (21.0-32.0); CHLORIDE - SERUM 103 mmol/L (98-107); CREATININE - SERUM 0.9 mg/dL (0.6-1.3); GLUCOSE 100 mg/dL (74-106); POTASSIUM - SERUM 4.3 mmol/L (3.5-5.1); SODIUM 138 mmol/L (136-145); UREA NITROGEN 19 mg/dL (7-18); eGFR NON AFRICAN AMERICAN 87 mL/min (90-120)
--- NOTE | 2018-08-20 10:09 | NUR ---
PATIENT ALERT AND ORIENTED THIS MORNING. NO COMPLAINTS OF PAIN OR DISCOMFORT. ASSISTED TO BATHROOM X2 BUT PATIENT HAD NO BM EITHER TIME. ATE 100% OF BREAKFAST AND IS UP FOR THERAPY AT THIS TIME. WILL CONTINUE TO MONITOR. CALL LIGHT WITHIN REACH.
--- NOTE | 2018-08-20 10:34 | NUR ---
Nutrition Follow Up: Chart reviewed Diet: Regular PO Intake: 78% meal avg BM: 08/19/18 Meds and labs reviewed Rec continue current diet. RD following.
[2018-08-20 10:53] VITALS: BP 104/49
--- NOTE | 2018-08-20 12:59 | NUR ---
PATIENT SITTING UP IN WHEELCHAIR TO EAT LUNCH. ATE 30% OF LUNCH. NO COMPLAINTS OF PAIN OR DISCOMFORT AT THIST MIRELLA. WILL CONTINUE TO MONITOR.
--- NOTE | 2018-08-20 16:56 | NUR ---
PATIENT SITTING UP IN WHEELCHAIR VISITING WITH SON. NO COMPLAINTS AT THIS TIME. WILL CONTINUE TO MONITOR. CALL LIGHT WITHIN REACH.
[2018-08-20 19:10] VITALS: BP 134/68
--- NOTE | 2018-08-20 19:41 | NUR ---
PT IS RESTING IN WC WITH EYES OPEN. PT STATED: "THAT NURSE DIDNT MOVE MY BAG OVER TO THE BED. GRAHAM CATH BAG HUNG ON SIDE RAIL, AND PT TRANSFERRED SELF TO BED. ALERT AND ORIENTED X 3. PT IS VERY [place]. SR'S ARE UP X 2 IN BED. CALL LIGHT AND BEDSIDE TABLE ARE WITHIN EASY REACH.
--- NOTE | 2018-08-20 22:24 | NUR ---
PT RESTING IN BED WITH EYES CLOSED. NO ACUTE DISTRESS NOTED.
--- NOTE | 2018-08-21 01:53 | NUR ---
PT IN BED, LOW POSITION, EYES CLOSED, AROUSES EASILY TO VOICE, NO NEEDS NOTED, FLUIDS AND CALL LIGHT WITHIN REACH
--- NOTE | 2018-08-21 06:24 | NUR ---
PT SITTING ON THE SIDE OF HIS BED. NO NEEDS VOICED.
[2018-08-21 08:00] VITALS: BP 120/44
--- NOTE | 2018-08-21 08:00 | NUR ---
SITTING UP IN WC IN ROOM FOR BREAKFAST. IS VERY [place]. F/C PATENT WITH CLOUDY URINE
--- NOTE | 2018-08-21 10:33 | NUR ---
IN THERAPY GYM
--- NOTE | 2018-08-21 16:29 | NUR ---
ROLLING AROUND UNIT IN WC. DENIES INCREASED PAIN BUT DOES FOR PAIN MEDS ABOUT EVERY 4 HRS.
--- NOTE | 2018-08-21 18:15 | NUR ---
SITTING IN WC IN ROOM. DENIES NEEDS OR C/O. CALL LIGHT IN REACH
--- NOTE | 2018-08-21 19:02 | NUR ---
PATIENT IS RESTING IN HER BED. HER BED IS DOWN LOW WITH SIDE RAILS UP X2. CALL LIGHT IS IN REACH.
--- NOTE | 2018-08-21 19:39 | NUR ---
PATIENT APPEARS TO BE SLEEPING. BED IS DOWN LOW WITH SIDE RAILS UP X2 AND CALL LIGHT IS IN REACH.
--- NOTE | 2018-08-21 21:42 | NUR ---
PT IS RESTING IN BED WITH EYES OPEN. ALERT AND ORIENTED X 3. PT IS VERY HARD OF HEARING. GRAHAM CATH IS PATENT AND DRAINING TO A GRAVITY BAG. URINE IS [place] COLORED AND CLEAR. NO NEEDS VOICED AT THIS TIME. SR'S ARE UP X 2 IN BED. CALL LIGHT AND BEDSIDE TABLE ARE WITHIN EASY REACH. BED ALARM IS ON.
[2018-08-21 22:01] VITALS: BP 129/79
--- NOTE | 2018-08-21 23:40 | NUR ---
PT RESTING QUIETLY IN BED WITH EYES CLOSED. RESPS ARE EVEN AND UNLABORED. NO ACUTE DISTRESS NOTED.
--- NOTE | 2018-08-22 03:31 | NUR ---
PT RESTING IN BED WITH EYES CLOSED.
--- NOTE | 2018-08-22 05:55 | NUR ---
PT SITTING IN WC IN HIS ROOM. NO NEEDS VOICED. GRAHAM CATH DRAINED.
[2018-08-22 06:18] LABS: BASOPHILS 0.4 % (0-2); EOSINOPHILS 2.5 % (0-7); HEMOGLOBIN 13.1 g/dL (13.5-17.5); IMMATURE GRANULOCYTES 1.1 % (0-5); LYMPHOCYTES 29.1 % (15-50); MCH 29.6 pg (26.0-34.0); MCHC 33.6 g/dL (31.0-37.0); MEAN PLATELET VOLUME 8.9 fL (7.4-10.4); MONOCYTES 9.4 % (2-11); NEUTROPHILS 57.5 % (40-80); PLATELET COUNT 388 10x3/uL (130-400); RBC 4.43 10x6/uL (4.20-6.10); RDW 14.7 % (11.5-14.5)
[2018-08-22 06:40] LABS: CALC OSMOLALITY 274 mosm/kg (275-300); CALCIUM 8.5 mg/dL (8.5-10.1); CARBON DIOXIDE 25.1 mmol/L (21.0-32.0); CHLORIDE - SERUM 102 mmol/L (98-107); GLUCOSE 102 mg/dL (74-106); POTASSIUM - SERUM 3.9 mmol/L (3.5-5.1); SODIUM 136 mmol/L (136-145); UREA NITROGEN 21 mg/dL (7-18); eGFR NON AFRICAN AMERICAN 77 mL/min (90-120)
--- NOTE | 2018-08-22 11:40 | NUR ---
THE PATIENT WAS SITTING IN HIS WHEELCHAIR WHEN STAFF ENTERED HIS ROOM. BED IS IN THE LOW POSITION WITH SIDERAILS X2 AND CALL LIGHT WITHIN REACH. PATIENT DEMONSTRATES UNDERSTANDING OF A CALL LIGHT VIA TEACHBACK MOTHOD. THE PATIENT APPEARS COMFORTABLE WITH NO QUESTIONS OR CONCERNS AT THIS TIME.
[2018-08-22 12:45] VITALS: BP 110/43
--- NOTE | 2018-08-22 16:00 | NUR ---
NOTIFIED X2 TODAY FOR BLOODY URINE AND PT DRIPING BRIGHT RED BLOOD FROM PENIS.FC AND STENT WAS DC'R WITH TIPS INTACT.PT SIT UP ON SIDE OF BED AND IMMEDIATELY VOIDED APPROX 150ML OF BLOODY URINE AND PASSED A COUPLE OF CLOTS. AWARE.
--- NOTE | 2018-08-22 17:50 | NUR ---
HERE.BLADDER SCANNED.147ML NOTED ; REPORTED X2 VOIDS SINCE FC AND STENT DC'D.PLAN FOR SURGERY TOMARROW FOR CYSTO AND CLOT REMOVEAL.
--- NOTE | 2018-08-22 19:24 | NUR ---
PATIENT IS SITTING UP ON THE SIDE OF THE BED. HE IS VISITING WITH HIS GRANDSON. HIS BED IS DOWN LOW WITH SIDE RAILS UP, CALL LIGHT IN REACH.
--- NOTE | 2018-08-22 20:00 | NUR ---
PT WITNESSED GETTING OUT OF BED MULITPLE TIMES TO URINATE. BED ALARM WENT OFF EVERY TIME. PT IS VERY [place]. GRANDSON IN ROOM. CONSENTS SIGNED BY GRANDSON FOR PROCEDURE TOMORROW. PT APPROVED FOR GRANDSON TO SIGN FOR HIM. PT CONFUSED AT TIMES. RESP EVEN AND UNLABORED. CALL LIGHT IN REACH. DENIES ANY FURTHER NEEDS OR PAIN. WCTM
[2018-08-22 21:00] VITALS: BP 114/45
--- NOTE | 2018-08-22 23:30 | NUR ---
PT HAD ACCIDENT IN BED. LINENS CHANGED. [facility] CALL LIGHT IN REACH BED ALARM ON
--- NOTE | 2018-08-23 03:54 | NUR ---
RESTING QUIETLY. NO SIGNS OF DISTRESS OR PAIN. BED IN LOW. BED ALARM ON. RESP EVEN AND UNLABORED. TM CALL LIGHT IN REACH
--- NOTE | 2018-08-23 04:43 | NUR ---
STARTED IV FOR PROCEDURE TODAY. 20 GUAGE IN LEFT FOREARM. TOLERATED PROCEDURE WELL. WCTM
--- NOTE | 2018-08-23 06:34 | NUR ---
YOB[place] BED BATH GIVEN.
--- NOTE | 2018-08-23 08:00 | NUR ---
THE PATIENT WAS AWAKE WHEN STAFF ENTERED HIS ROOM. BED IS IN THE LOW POSITION WITH SIDERAILS X2 AND CALL LIGHT WITHIN REACH. THE PATIENT WAS EDUCATED ON THE NEED TO CALL FOR THE NURSE BEFORE HE NEEDS ANY ASSISTANCE WITH ADLS AND WHEN HE WANTS TO GET OUT OF BED. THE PATIENT DEMONSTRATES UNDERSTANDING VIA TEACHBACK. THE PATIENT APPEARS COMFORTABLE WITH NO QUESTIONS OR CONCERNS AT THIS TIME.
[2018-08-23 08:02] LABS: BASOPHILS 0.4 % (0-2); EOSINOPHILS 2.6 % (0-7); HEMATOCRIT 35.6 % (42.0-54.0); LYMPHOCYTES 30.2 % (15-50); MCH 29.4 pg (26.0-34.0); MCHC 33.7 g/dL (31.0-37.0); MCV 87.3 fL (80.0-100.0); MEAN PLATELET VOLUME 9.1 fL (7.4-10.4); MONOCYTES 10.6 % (2-11); NEUTROPHILS 55.2 % (40-80); PLATELET COUNT 366 10x3/uL (130-400); RBC 4.08 10x6/uL (4.20-6.10); RDW 14.7 % (11.5-14.5); WBC 7.7 10x3/uL (4.8-10.8)
[2018-08-23 08:10] LABS: CALC OSMOLALITY 276 mosm/kg (275-300); CALCIUM 8.7 mg/dL (8.5-10.1); CARBON DIOXIDE 27.5 mmol/L (21.0-32.0); CHLORIDE - SERUM 104 mmol/L (98-107); GLUCOSE 107 mg/dL (74-106); POTASSIUM - SERUM 4.3 mmol/L (3.5-5.1); SODIUM 137 mmol/L (136-145); UREA NITROGEN 20 mg/dL (7-18); eGFR NON AFRICAN AMERICAN 77 mL/min (90-120)
[2018-08-23 09:24] VITALS: BP 99/45
--- NOTE | 2018-08-23 13:10 | NUR ---
Nutrition Follow Up: Chart reviewed. Pt is NPO today for a cystoscopy. Prior to this pt was eating 69% meal avg on a regular diet. BM: 08/19/18 Meds and labs reviewed Rec resuming a regular diet when medically feasible. RD following.
--- NOTE | 2018-08-23 19:05 | NUR ---
GREETED PATIENT AND INTRODUCED MYSELF HIS NURSE. PATIENT IS LAYING DOWN IN BED, SITS UP TO TAKE VITAL SIGNS. VITAL SIGNS OBTAINED. CALL LIGHT IN REACH.
[2018-08-23 19:06] VITALS: BP 143/67
--- NOTE | 2018-08-23 19:15 | NUR ---
ASSISTED PATIENT TO BATHROOM USING WALKER. PATIENT BACK TO BED AND REPOSITIONED FOR COMFORT. CALL LIGHT IN REACH.
--- NOTE | 2018-08-24 02:04 | NUR ---
PATIENT RESTING QUIETLY LAYING ON RIGHT SIDE. HOB AT 20 DEGREES. RESPIRATIONS EVEN. NO S/S OF DISTRESS. SR UP X 2. BED IN LOWEST POSITION. CALL LIGHT IN REACH.
[2018-08-24 09:11] VITALS: BP 138/66
--- NOTE | 2018-08-24 14:00 | NUR ---
THE PATIENT WAS LYING IN BED WHEN STAFF ENTERED HIS ROOM. BED IS IN THE LOW POSITION WITH SIDERAILS X2 AND CALL LIGHT WITHIN REACH. THE PATIENT WAS EDUCATED ON AND DEMONSTRATED UNDERSTANDING OF A CALL LIGHT, VIA TEACH BACK METHOD. THE PATIENT APPEARS COMFORTABLE WITH NO QUESTIONS OR CONCERNS AT THIS TIME.
--- NOTE | 2018-08-24 15:04 | NUR ---
THE PATIENT WAS LYING IN BED WHEN STAFF ENTERED HER ROOM. BED IS IN THE LOW POSITION WITH SIDERAILS X2 AND CALL LIGHT WITHIN REACH. PATIENT DEMONSTRATES APPROPRIATE USE OF A CALL LIGHT. THE PATIENT APPEARS COMFORTABLE WITH NO QUESTIONS OR CONCERNS AT THIS TIME.
--- NOTE | 2018-08-24 18:06 | NUR ---
I have reviewed this patient and I concur with the Shift Assessment completed by the Licensed Practical Nurse today this shift.
[2018-08-24 19:22] VITALS: BP 83/47
--- NOTE | 2018-08-24 19:26 | NUR ---
PT IS RESTING IN WC IN HIS ROOM VISITING WITH FAMILY MEMBERS. ALERT AND ORIENTED X 3. PT IS VERY [place]. DENIES ANY NEEDS AT THIS TIME. VSS. GRAHAM CATH IS PATENT AND DRAINING TO A GRAVITY BAG. SR'S ARE UP X 2 WHILE IN BED. CALL LIGHT IS IN EASY REACH. BED AND CHAIR ALARM IN USE.
--- NOTE | 2018-08-24 21:28 | NUR ---
PT RESTLESS, HE WILL LIE DOWN, AND BE BACK UP IN A FEW MINUTES. OVER AND OVER. NO NEEDS VOICED.
--- NOTE | 2018-08-24 23:55 | NUR ---
PT IS SITTING UP ON THE SIDE OF HIS BED. ENCOURAGED TO LIE DOWN, BUT REFUSING TO DO SO.
--- NOTE | 2018-08-25 03:12 | NUR ---
RESTING IN BED WITH EYES CLOSED AND RESPIRATIONS UNLABORED. NO DISTRESS NOTED.
--- NOTE | 2018-08-25 05:50 | NUR ---
PT ASSISTED TO THE BATHROOM WITH CGA. ASSISTED BACK TO BED. GRETTA PT IN ROOM WITH PT NOW.
[2018-08-25 08:51] VITALS: BP 129/61
--- NOTE | 2018-08-25 09:55 | NUR ---
ALERT AND ORIENTED. PARTICIPATING IN THERAPY THIS AM. NO DISTRESS NOTED.
--- NOTE | 2018-08-25 12:43 | NUR ---
NO CHANGE IN ASSESSMENT. RESP EVEN AND UNLABORED. CL IN REACH.
--- NOTE | 2018-08-25 19:14 | NUR ---
PATIENT IS RESTING IN HIS BED WITH EYES CLOSED. HIS BED IS DOWN LOW WITH SIDE RAILS UP X2. CALL LIGHT IS IN REACH.
--- NOTE | 2018-08-25 21:54 | NUR ---
PT IS LYING DOWN IN BED AT THIS TIME. HE WILL LAY DOWN, THEN SIT UP FOR A FEW MINUTES AND LAY DOWN AGAIN. NO NEEDS VOICED. ASSISTED TO BATHROOM PRN.
--- NOTE | 2018-08-26 02:28 | NUR ---
RESTING IN BED WITH EYES CLOSED.
--- NOTE | 2018-08-26 06:03 | NUR ---
PT RESTING IN BED WITH EYES CLOSED.
[2018-08-26 07:30] VITALS: BP 120/62
--- NOTE | 2018-08-26 08:00 | NUR ---
SITTING UP ON SIDE OF BED. INCONT OF URINE. C/O NOT KNOWING WHEN HE NEEDS TO URINATE. CLOTHES AND BED CHANGED. PT CLEANED UP. CALL LIGHT IN REACH. VERY [place].
--- NOTE | 2018-08-26 12:39 | NUR ---
SITTING UP ON SIDE OF BED EATING LUNCH. FEEDS SELF. DENIES NEEDS. CALL LIGHT IN REACH.
--- NOTE | 2018-08-26 15:28 | NUR ---
LAYING DOWN IN BED. EYES CLOSED. NO S/S DISTRESS. CALL LIGHT IN REACH. BED IN LOWEST POSITION. SIDE RAILS UP X2.
--- NOTE | 2018-08-26 17:55 | NUR ---
SITTING ON SIDE OF BED EATING SUPPER. CALL LIGHT IN REACH
--- NOTE | 2018-08-26 19:09 | NUR ---
PATIENT IS RESTING IN HIS BED WITH HIS EYES CLOSED. HIS BED IS DOWN LOW WITH SIDE RAILS UP X2 AND CALL LIGHT IN REACH.
[2018-08-26 19:54] VITALS: BP 103/47
--- NOTE | 2018-08-26 21:29 | NUR ---
PT SHOWERED WITH MOD ASSIST. BED LINENS CHANGED.
--- NOTE | 2018-08-27 00:23 | NUR ---
PT IS RESTING QUIETLY IN BED WITH EYES CLOSED. RESPS ARE EVEN AND UNLABORED. NO ACUTE DISTRESS NOTED.
--- NOTE | 2018-08-27 04:10 | NUR ---
PT RESTING IN BED WITH EYES CLOSED. NO DISTRESS NOTED.
[2018-08-27 06:55] LABS: BASOPHILS 0.4 % (0-2); EOSINOPHILS 2.7 % (0-7); HEMATOCRIT 36.8 % (42.0-54.0); HEMOGLOBIN 11.9 g/dL (13.5-17.5); IMMATURE GRANULOCYTES 0.7 % (0-5); LYMPHOCYTES 35.3 % (15-50); MCH 29.1 pg (26.0-34.0); MCHC 32.3 g/dL (31.0-37.0); MEAN PLATELET VOLUME 9.2 fL (7.4-10.4); MONOCYTES 13.9 % (2-11); PLATELET COUNT 413 10x3/uL (130-400); RBC 4.09 10x6/uL (4.20-6.10); WBC 6.7 10x3/uL (4.8-10.8)
[2018-08-27 07:07] LABS: CALC OSMOLALITY 278 mosm/kg (275-300); CALCIUM 8.7 mg/dL (8.5-10.1); CHLORIDE - SERUM 104 mmol/L (98-107); CREATININE - SERUM 0.8 mg/dL (0.6-1.3); GLUCOSE 100 mg/dL (74-106); POTASSIUM - SERUM 4.4 mmol/L (3.5-5.1); SODIUM 139 mmol/L (136-145); UREA NITROGEN 16 mg/dL (7-18); eGFR NON AFRICAN AMERICAN > 90 mL/min (90-120)
[2018-08-27 08:07] VITALS: BP 111/63
--- NOTE | 2018-08-27 08:08 | NUR ---
LAYING IN BED WITH EYES CLOSED. IS VERY [place]. IS PLEASANT AND COOPERATIVE WITH REQUESTS. FEEDS SELF. CALL LIGHT IN REACH
--- NOTE | 2018-08-27 16:23 | NUR ---
SITTING ON SIDE OF BED. DENIES NEEDS OR C/O. IS VERY [place] AND TALKS REAL LOUD TO EVERYONE EVEN ON THE PHONE. KNOWS HOW TO USE CALL LIGHT
--- NOTE | 2018-08-27 18:03 | NUR ---
SITTING ON SIDE OF BED EATING SUPPER. DENIES NEEDS. CALL LIGHT IN REACH
[2018-08-27 19:17] VITALS: BP 142/63
--- NOTE | 2018-08-27 20:00 | NUR ---
PT IS RESTING IN BED WITH EYES CLOSED. AWAKENS EASILY TO VERBAL STIMULI. ALERT AND ORIENTED X 3. DENIES ANY NEEDS. PT IS VERY [place]. SR'S ARE UP X 2 IN BED. CALL LIGHT AND BEDSIDE TABLE ARE WITHIN EASY REACH.
--- NOTE | 2018-08-27 23:56 | NUR ---
PT UP TO BR VIA AMB WITH ASSISTANCE, VOIDED WITH NO DIFFICULTY, PT BACK TO BED, WARM BLANKET PROVIDED, DENIES FURTHER NEEDS OR PAIN, BED IN LOW POSITION, SIDE RAILS X 2, CALL LIGHT IN REACH
--- NOTE | 2018-08-28 | NUR ---
PT RESTING WITH EYES CLOSED, RESP QUIET, NO DISTRESS NOTED, LEFT UNDISTURBED AT THIS TIME, BED IN LOW POSITION, SIDE RAILS X 2, CALL LIGHT IN REACH
--- NOTE | 2018-08-28 01:04 | NUR ---
RESTING IN BED WITH RESPIRATIONS UNLABORED. NO DISTRESS NOTED. CALL LIGHT IN REACH.
--- NOTE | 2018-08-28 04:27 | NUR ---
RESTING IN BED WITH EYES CLOSED.
--- NOTE | 2018-08-28 05:00 | NUR ---
PT AWAKE, UP TO BR, PT VOIDED, BRIEF AND JOGGING PANTS NOTED TO BE WET, PT CLEANED UP, CLEAN BRIEF AND JOGGING PANTS PLACED, COMPLETE BEDDING CHANGE, PT CONTINUES SITTING UP IN WC REQUESTED, DENIES FURTHER NEEDS
--- NOTE | 2018-08-28 07:29 | NUR ---
ALERT AND ORIENTED. RESP EVEN AND UNLABORED NO DISTRESS NOTED.
--- NOTE | 2018-08-28 07:31 | NUR ---
ALERT AND ORIENTED. RESP EVEN AND UNLABORED NO DISTRESS NOTED.
[2018-08-28 08:14] VITALS: BP 136/85
--- NOTE | 2018-08-28 10:23 | NUR ---
Nutrition Follow Up: Chart reviewed Diet: Regular PO Intake: 84% meal avg BM: 08/26/18 Meds and labs reviewed Rec continue current diet. RD following.
--- NOTE | 2018-08-28 11:53 | NUR ---
PARTICIPATED IN THERAPY THIS AM.
[2018-08-28 15:03] VITALS: BP 128/64
--- NOTE | 2018-08-28 15:43 | NUR ---
NO CHANGE IN ASSESSMENT. NO C/O PAIN. CL IN REACH.
--- NOTE | 2018-08-28 16:15 | NUR ---
REFUSED SHOWER. STATED HE HAD A SHOWER AT 8PM LAST NIGHT.
[2018-08-28 19:00] VITALS: BP 110/50
--- NOTE | 2018-08-28 22:44 | NUR ---
AWAKE AND DOZING AT INTERVALS. NO DISTRESS NOTED. RESPIRATIONS UNLABORED. NOTED HARD OF HEARING. CALL LIGHT IN REACH.
--- NOTE | 2018-08-29 02:56 | NUR ---
CONTINUES RESTING IN BED WITH RESPIRATIONS UNLABORED. NO DISTRESS NOTED. CALL LIGHT IN REACH.
--- NOTE | 2018-08-29 06:04 | NUR ---
QUIET HOURS. NO CHANGES IN CONDITION THIS SHIFT. NO DISTRESS NOTED.
[2018-08-29 08:00] VITALS: BP 127/65
--- NOTE | 2018-08-29 08:09 | NUR ---
PT SITTING UP IN BED EATING BREAKFAST, DENIES NEEDS. WCTM.
--- NOTE | 2018-08-29 16:30 | NUR ---
CARE TEAM MEETING: PATIENT DISCHQARGING IN AM TO HIS HOME WITH FAMILY. WILL CONTINUE TO FOLLOW WITH PATIENT.
[2018-08-29 19:00] VITALS: BP 115/58
--- NOTE | 2018-08-29 19:25 | NUR ---
ASSISTED PT TO BATHROOM AND BACK TO BED. CALL LIGHT IN REACH.
--- NOTE | 2018-08-30 00:05 | NUR ---
ASSISTED PT TO BATHROOM, AND BACK TO BED. CALL LIGHT IN REACH.
--- NOTE | 2018-08-30 03:20 | NUR ---
PT ASLEEP NO NEEDS NOTED, BREATHING EVEN,FLUIDS AND CALL LIGHT WITHIN REACH
[2018-08-30 08:00] VITALS: BP 119/68
--- NOTE | 2018-08-30 08:35 | NUR ---
PT AM MEDS ADMINISTERED. PT EATING BREAKFAST, DENIES NEEDS. WCTM.
[2018-08-30] MEDS ORDERED: HYDROCODON-ACE1 EAC7 PO (10:18)
--- NOTE | 2018-08-30 10:30 | NUR ---
PATIENT DISCHARGING HOME WITH FAMILY TODAY. [facility] WILL PROVIDE THERAPY AT HOME. NO NEW DME NEEDED AT THIS TIME. [facility] DR. TREVINO 09/12/18 @ 11:30.PATIENT CHOICE FORM AND [facility] FORMS SIGNED, COPY GIVEN TO PATIENT AND FILED IN CHART. DISCHARGE INSTRUCTIONS WITH [facility] FAXED TO [facility] AND REVIEWED WITH PATIENT.
--- NOTE | 2018-08-30 11:45 | NUR ---
PT DISCHARGE INSTRUCTIONS REVIEWED. PT STATES UNDERSTANDING. PT ESCORTED OUT VIA WHEELCHAIR BY HOSPITAL STAFF. PT DISCHARGING HOME WITH FAMILY AT THSI TIME.
== END 2018-08-30 14:22 | disposition home health service (06) | DRG 872 ==
LOC: D.REHAB 17:11
PROVIDERS: ADMIT Emergency Medicine; ATTEND Emergency Medicine
DX: A41.9 Sepsis, unspecified organism (principal); N39.0 Urinary tract infection, site not specified; N12 Tubulo-interstitial nephritis, not specified as acute or chronic; N17.9 Acute kidney failure, unspecified; E46 Unspecified protein-calorie malnutrition; N32.0 Bladder-neck obstruction; N40.0 Benign prostatic hyperplasia without lower urinary tract symptoms; D64.9 Anemia, unspecified; I10 Essential (primary) hypertension; I48.2 Chronic atrial fibrillation; R41.82 Altered mental status, unspecified; E03.9 Hypothyroidism, unspecified; E87.6 Hypokalemia; F41.8 Other specified anxiety disorders; D72.829 Elevated white blood cell count, unspecified; R32 Unspecified urinary incontinence; R31.0 Gross hematuria; R53.81 Other malaise

== ENCOUNTER 2018-10-11 05:50 | Day surgery (SDC) | payer MEDICARE ==
[2018-10-09 15:11] LABS: CALC OSMOLALITY 278 mosm/kg (275-300); CALCIUM 9.1 mg/dL (8.5-10.1); CARBON DIOXIDE 28.3 mmol/L (21.0-32.0); CHLORIDE - SERUM 104 mmol/L (98-107); CREATININE - SERUM 0.7 mg/dL (0.6-1.3); GLUCOSE 93 mg/dL (74-106); POTASSIUM - SERUM 3.9 mmol/L (3.5-5.1); SODIUM 139 mmol/L (136-145); UREA NITROGEN 15 mg/dL (7-18); eGFR NON AFRICAN AMERICAN > 90 mL/min (90-120)
[2018-10-09 15:15] LABS: HEMATOCRIT 40.3 % (42.0-54.0); HEMOGLOBIN 13.4 g/dL (13.5-17.5); MCH 28.5 pg (26.0-34.0); MCHC 33.3 g/dL (31.0-37.0); MCV 85.7 fL (80.0-100.0); RBC 4.7 10x6/uL (4.20-6.10); RDW 14.8 % (11.5-14.5); WBC 8.9 10x3/uL (4.8-10.8)
[~2018-10-11] VITALS: Ht 188 cm; Wt 105.2 kg
[2018-10-11 06:50] VITALS: BP 139/74; Ht 188 cm; Wt 105.2 kg
--- NOTE | 2018-10-11 09:40 | NUR ---
REC'D FROM [facility]. VERY [place]. HAS DIFFICULTY UNDERSTANDING. FAMILY AT BEDSIDE. COFFEE BROUGHT TO PATIENT. RELATES HE IS NEEDING TO USE THE BATHROOM. ASSISTED TO BATHROOM AND EXPLAINED TO PULL EMERGENCY CORD WHEN IS READY TO GET UP. VERBALIZED UNDERSTANDING.
--- NOTE | 2018-10-11 10:10 | NUR ---
FL TRAY BROUGHT TO PATIENT. FAMILY REPORTS PATEINT HAS BEEN TO BATHROOM SEVERAL TIMES SINCE NURSE WAS IN THERE LAST. EXPLAINED TO FAMILY THAT IS PART OF THE SURGERY.
--- NOTE | 2018-10-11 10:50 | NUR ---
TOLERATED DIET. IV DC'D WITH CATHETER INTACT. WRITTEN AND VERBAL DC INST. GIVEN TO PT ALONG WITH FOLLOW UP APPOINTMENT. VERBALIZED UNDERSTANDING.
--- NOTE | 2018-10-11 11:30 | OP ---
PATIENT NAME: ROLAN DAIGLE MEDICAL RECORD: [id number] :39 LOCATION:[facility]IN [facility] ADMISSION DATE: SURGEON: DAYO TREVINO MD DATE OF OPERATION: 10/11/2018 SURGEON: Dayo Trevino MD ANESTHESIA: TIVA by Lisa Ramírez CRNA. 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 Possible retained left ureteral stent. PROCEDURE: UroLift times 4 in a box configuration. FINDINGS: Bilateral lateral lobe obstruction near the bladder neck. No bladder tumors. No stent is seen. Fluoroscopy revealed no ureteral stent is present. BLOOD LOSS: None. CLINICAL HISTORY: This is a 77-year-old male, who was recently admitted to the hospital with a left pyelonephritis due to an obstructive left ureteral stone. I removed the stone via ureteroscopy and I placed a left ureteral stent with a string attached. At the time of cystoscopy, he was found to have bilateral obstructive lateral lobes of the prostate with no median lobe. No bladder tumors were seen. He came to the office for followup and I attempted to remove the stent, but no string was visible. He will require the UroLift procedure for his obstructive BPH with recurrent UTIs and therefore, he is also scheduled to have the ureteral stent removed. He is not allergic to any medications. He was given [employer] employee relations director to the OR. DESCRIPTION OF PROCEDURE: The patient was given IV sedation. He was then placed into the lithotomy position and prepped and draped. I inserted the 21-Nepalese cystoscope. Findings are as outlined above. I could not find the stent at all. Finally, I performed fluoroscopy on the patient and it was evident that no stent was present. The patient, therefore, must have pulled out the stent on his own and not realized it at some point in the past. We then switched to the UroLift scope. Two units were placed in the anterior lateral sulcus of the lateral lobe. One unit was placed on each side. These were placed 1.5 cm distal to the bladder neck. Then, 2 more units were placed 1.5 cm distal to the bladder neck at the mid prostatic urethral level. This led to a nice wide open prostatic urethra. The bladder was then left partly full, so that we could have a voiding trial today. I will see him in followup in 1 months' time. TRANSINT:[id number] Voice Confirmation ID: [id number] DOCUMENT ID: [id number] DAYO TREVINO MD at 1130 CC: [id number] DICTATION DATE: 10/11/18918 VISITOR USE ASSISTANT: 10/11/18 1114 [facility] [address] [id number]
== END 2018-10-11 11:00 | disposition home or self-care (01) ==
LOC: D.OPS 05:50 → D.PAN 08:00 → D.OPS 08:10
PROVIDERS: Anesthesiology; ATTEND Urology
DX: N40.1 Benign prostatic hyperplasia with lower urinary tract symptoms (principal); N13.8 Other obstructive and reflux uropathy; Z01.812 Encounter for preprocedural laboratory examination